=== PATIENT | male | born 1965 | race American Indian/Alaskan Native ===

== ENCOUNTER 2018-09-04 20:45 | Observation (INO) | payer SELFPAY ==
[2018-09-04] MEDS ORDERED: ASPIRIN PO ONE (20:51)
--- NOTE | 2018-09-04 20:57 | Event Note ---
ED Screening Note Date of service: 09/04/18 Time: 20:52 ED Screening Note: This is a 52 y.o. M. that presents to the ER with chest pain radiating to LUE. Patient to nitroglycerin x 3 prior to arrival. PMH: CVA, ID, Brain aneurism This initial assessment/diagnostic orders/clinical plan/treatment(s) is/are subject to change based on patients health status, clinical progression and re- assessment by fellow clinical providers in the ED. Further treatment and workup at subsequent clinical providers discretion. Patient/guardian urged not to elope from the ED as their condition may be serious if not clinically assessed and managed. Initial orders include: Labs and CXR
[2018-09-04 21:14] LABS: Basophils % (Auto) 0.3 % (0.0-1.8); Eosinophils # (Auto) 0.1 K/mm3 (0.0-0.4); Eosinophils % (Auto) 1.2 % (0.0-4.3); Hematocrit 37.2 % (35.5-45.6); Hemoglobin 12.5 gm/dl (11.8-15.2); Lymphocytes # (Auto) 1.8 K/mm3 (1.2-5.4); Lymphocytes % (Auto) 27.4 % (13.4-35.0); Mean Corpuscular HGB Conc 34 % (32-34); Mean Corpuscular Volume 96 fl (84-94); Monocytes # (Auto) 0.4 K/mm3 (0.0-0.8); Monocytes % (Auto) 5.9 % (0.0-7.3); Platelet Count 203 K/mm3 (140-440); Red Blood Count 3.89 M/mm3 (3.65-5.03); Red Cell Distribution Width 14.8 % (13.2-15.2)
[2018-09-04 21:33] LABS: BUN/Creatinine Ratio 8; Blood Urea Nitrogen 11 mg/dL (9-20); Calcium 9.1 mg/dL (8.4-10.2); Hemolysis Index 11
[2018-09-04] MEDS ORDERED: ZOFRAN IV ONE (21:59)
[2018-09-04] MEDS ORDERED: SUBLIMAZE IV ONE (21:59)
--- NOTE | 2018-09-04 22:00 | XRay Report ---
CHEST 1 VIEW 09/04/2018 9:20 PM INDICATION / CLINICAL INFORMATION: Chest Pain. COMPARISON: None available. FINDINGS: SUPPORT DEVICES: None. HEART / MEDIASTINUM: No significant abnormality. LUNGS / PLEURA: No significant pulmonary or pleural abnormality. No pneumothorax. ADDITIONAL FINDINGS: No significant additional findings. IMPRESSION: 1. No acute findings. Signer Name: Paul Vásquez MD Signed: 09/04/2018 9:56 PM Workstation Name: [id number]
--- NOTE | 2018-09-04 22:06 | Emergency Department Report ---
HPI - General Chief Complaint: Chest Pain Time Seen by Provider: 09/04/18 20:51 - HPI HPI: Room 1 The patient is a 52-year-old male presenting with a chief complaint of chest pain. The patient states for the past 3 hours has had constant substernal chest pain described as a pressure in nature. Patient states he has experienced nausea and diaphoresis but denies shortness of breath or vomiting. Patient denies pleurisy or cough. The patient states he drove from [facility] here 2 days ago. Patient rarely gets his pain score 10/10. The patient states he had a cardiac catheterization last year which showed "some blockages but not enough" to stent." Location: [See above] Duration: [See above] Quality: [See above] Severity: [See above] Modifying factors: [see above] Context: [see above] Mode of transportation: [not driving] ED Past Medical Hx - Past Medical History Previous Medical History?: Yes Hx CVA: Yes (anuerysm) Hx Heart Attack/AMI: Yes - Surgical History Past Surgical History?: Yes Hx Appendectomy: Yes Additional Surgical History: back and neck surgery. - Family History Family history: no significant - Social History Smoking Status: Current Some Day Smoker (occasional) Substance Use Type: None (denies illicit drug use), Alcohol (occasional) ED Review of Systems ROS: Stated complaint: CHEST PAIN /HEAD Other details as noted in HPI Constitutional: diaphoresis Eyes: denies: eye pain ENT: denies: throat pain Respiratory: denies: shortness of breath Cardiovascular: chest pain Endocrine: no symptoms reported Gastrointestinal: denies: abdominal pain Genitourinary: denies: dysuria Musculoskeletal: denies: back pain Neurological: denies: headache Physical Exam - Physical Exam Vital Signs: Vital Signs 09/04/18 20:49 Temperature 98.1 F Pulse Rate 61 Respiratory 18 Rate Blood Pressure 165/109 [Right] O2 Sat by Pulse 100 Oximetry Physical Exam: GENERAL: The patient is well-developed well-nourished male lying on stretcher not appearing to be in acute distress. [] HEENT: Normocephalic. Atraumatic. Extraocular motions are intact. Patient has moist mucous membranes. NECK: Supple. Trachea midline CHEST/LUNGS: Clear to auscultation. There is no respiratory distress noted. HEART/CARDIOVASCULAR: Regular. There is no tachycardia. There is no gallop rub or murmur. ABDOMEN: Abdomen is soft, nontender. Patient has normal bowel sounds. There is no abdominal distention. SKIN: There is no rash. There is no edema. There is no diaphoresis. NEURO: The patient is awake, alert, and oriented. The patient is cooperative. The patient has normal speech MUSCULOSKELETAL: There is no evidence of acute injury. ED Course Vital Signs 09/04/18 20:49 Temperature 98.1 F Pulse Rate 61 Respiratory 18 Rate Blood Pressure 165/109 [Right] O2 Sat by Pulse 100 Oximetry ED Medical Decision Making - Lab Data Result diagrams: 09/04/18 21:00 09/04/18 21:00 Laboratory Tests 09/04/18 09/04/18 09/04/18 21:00 21:00 22:00 WBC 6.6 RBC 3.89 Hgb 12.5 Hct 37.2 MCV 96 H MCH 32 MCHC 34 RDW 14.8 Plt Count 203 Lymph % (Auto) 27.4 Sandoval % (Auto) 5.9 Eos % (Auto) 1.2 Baso % (Auto) 0.3 Lymph # 1.8 Sandoval # 0.4 Eos # 0.1 Baso # 0.0 Seg Neutrophils % 65.2 Seg Neutrophils # 4.3 D-Dimer 686.45 H Sodium 141 Potassium 3.2 L Chloride 103.7 Carbon Dioxide 25 Anion Gap 16 BUN 11 Creatinine 1.4 Estimated GFR 53 BUN/Creatinine Ratio 8 Glucose 178 H Calcium 9.1 Troponin T < 0.010 09/04/18 23:43 WBC RBC Hgb Hct MCV MCH MCHC RDW Plt Count Lymph % (Auto) Sandoval % (Auto) Eos % (Auto) Baso % (Auto) Lymph # Sandoval # Eos # Baso # Seg Neutrophils % Seg Neutrophils # D-Dimer Sodium Potassium Chloride Carbon Dioxide Anion Gap BUN Creatinine Estimated GFR BUN/Creatinine Ratio Glucose Calcium Troponin T < 0.010 - EKG Data -: EKG Interpreted by Me EKG shows normal: sinus rhythm Rate: normal - EKG Data When compared to previous EKG there are: previous EKG unavailable Interpretation: nonspecific ST-T wave steve (T-wave inversions in leads 3 and aVF) - Radiology Data Radiology results: report reviewed (chest x-ray, CT chest), image reviewed (chest x-ray, CT chest) interpreted by me: Chest x-ray-no focal infiltrates, no pneumothorax [address] [address] XRay Report Signed Patient: EVITA PENDLETON MR#: [id number] : 1965 Acct:[id number] Age/Sex: 52 / M ADM Date: 09/04/18 Loc: ED Attending Dr: Ordering Physician: ANDI BYRD Date of Service: 09/04/18 Procedure(s): XR chest 1V ap Accession Number(s): [id number] cc: ANDI BYRD Fluoro Time In Minutes: CHEST 1 VIEW 09/04/2018 9:20 PM INDICATION / CLINICAL INFORMATION: Chest Pain. COMPARISON: None available. FINDINGS: SUPPORT DEVICES: None. HEART / MEDIASTINUM: No significant abnormality. LUNGS / PLEURA: No significant pulmonary or pleural abnormality. No pneumoth orax. ADDITIONAL FINDINGS: No significant additional findings. IMPRESSION: 1. No acute findings. Signer Name: Paul Vásquez MD Signed: 09/04/2018 9:56 PM Workstation Name: [id number] Transcribed By: SID Dictated By: Paul Vásquez MD Electronically Authenticated By: Paul Vásquez MD Signed Date/Time: 09/04/182155 DD/ 55 TD/TT: [address] [address] Cat Scan Report Signed Patient: EVITA PENDLETON MR#: [id number] : 1965 Acct:[id number] Age/Sex: 52 / M ADM Date: 09/04/18 Loc: ED Attending Dr: Ordering Physician: ROBERTA HARDING MD Date of Service: 09/05/18 Procedure(s): CT angio chest Accession Number(s): [id number] cc: ROBERTA HARDING MD CTA CHEST WITH IV CONTRAST INDICATION: chest pain, shortness of breath. TECHNIQUE: Axial CT images were obtained through the chest after injection of 100 mL Omnipaque 350 IV contrast. 3 plane MIP reconstructions were produced. All CT scans at this location are performed using CT dose reduction for ALARA by means of automated exposure control. COMPARISON: One view of the chest from 09/04/2018. FINDINGS: PULMONARY ARTERIES: Well-opacified without visualization of thromboemboli. AORTA AND ARTERIES: Patent and normal in caliber without significant atherosclerosis. MEDIASTINUM: No mass, lymphadenopathy or other significant abnormality. The heart is normal in size without a pericardial effusion. The trachea and main bronchi are patent and normal in caliber. LUNGS: Mild dependent atelectasis is noted bilaterally. The lungs are otherwise clear without a pneumothorax or pleural effusion. ADDITIONAL FINDINGS: None. UPPER ABDOMEN: No acute findings. BONES: No significant osseous abnormality. IMPRESSION: 1. No CT evidence for pulmonary embolism. 2. No acute findings. Signer Name: Boston Graham MD Signed: 09/05/2018 1:20 AM Workstation Name: [id number] Transcribed By: MN Dictated By: Boston Graham MD Electronically Authenticated By: Boston Graham MD Signed Date/Time: 09/05/18119 DD/ 6 TD/TT: - Differential Diagnosis ACS, pericarditis, PE, GERD Critical care attestation.: If time is entered above; I have spent that time in minutes in the direct care of this critically ill patient, excluding procedure time. ED Disposition Clinical Impression: Chest pain Disposition: DC-09 OP ADMIT IP TO THIS HOSP Is pt being admited?: Yes Does the pt Need Aspirin: Yes Condition: Fair Instructions: Chest Pain (ED) Time of Disposition: 01:27 (hospitalist paged (Dr. Sapna Matthews))
--- NOTE | 2018-09-05 01:24 | Cat Scan Report ---
CTA CHEST WITH IV CONTRAST INDICATION: chest pain, shortness of breath. TECHNIQUE: Axial CT images were obtained through the chest after injection of 100 mL Omnipaque 350 IV contrast. 3 plane MIP reconstructions were produced. All CT scans at this location are performed using CT dose reduction for ALARA by means of automated exposure control. COMPARISON: One view of the chest from 09/04/2018. FINDINGS: PULMONARY ARTERIES: Well-opacified without visualization of thromboemboli. AORTA AND ARTERIES: Patent and normal in caliber without significant atherosclerosis. MEDIASTINUM: No mass, lymphadenopathy or other significant abnormality. The heart is normal in size w ithout a pericardial effusion. The trachea and main bronchi are patent and normal in caliber. LUNGS: Mild dependent atelectasis is noted bilaterally. The lungs are otherwise clear without a pneum othorax or pleural effusion. ADDITIONAL FINDINGS: None. UPPER ABDOMEN: No acute findings. BONES: No significant osseous abnormality. IMPRESSION: 1. No CT evidence for pulmonary embolism. 2. No acute findings. Signer Name: Boston Graham MD Signed: 09/05/2018 1:20 AM Workstation Name: [id number]
[2018-09-05] MEDS ORDERED: NITROSTAT SL PRN (01:47)
[2018-09-05] MEDS ORDERED: SODIUM CHLORIDE FLUSH SYRINGE 10 ML IV PRN ×2 (01:47→01:49)
[2018-09-05] MEDS ORDERED: ZOFRAN IV PRN (01:49)
[2018-09-05] MEDS ORDERED: TYLENOL PO PRN (01:49)
[2018-09-05] MEDS ORDERED: MORPHINE ONE (01:49)
[2018-09-05] MEDS ORDERED: PROVENTIL IH PRN (01:49)
[2018-09-05] MEDS ORDERED: DILAUDID IV PRN (01:49)
[2018-09-05] MEDS ORDERED: K-DUR PO ONE (01:52)
--- NOTE | 2018-09-05 01:56 | History and Physical Report ---
<DEMETRA CARRANZA - Last Filed: 09/05/18 02:35> History of Present Illness Date of examination: 09/05/18 Date of admission: 09/05/2018 Chief complaint: Chest pain History of present illness: 52-year-old -[place] Citizen male who is an ongoing smoker with history of hypertension, CAD, CVA, IN, aneurysm, and GERD who presents [facility] with complaints of persistent substernal left-sided chest pain. He is visiting from [place], and staying at an extended stay motel on [address]. Pt states that he started to experience persistent substernal left-sided chest pain for approximately 3-4 hours. His chest pain was accompanied with diaphoresis and lightheadedness so he decided to come in for evaluation. Patient admits to having cardiac catheterization done last year, and was told that he has multivessel blockage. He is unsure of the exact percentage. Denies: Nausea, vomiting, diarrhea, fever, headache, cough, or hemoptysis Past History Past Medical History: acute IN, GERD, stroke, other (aneurysm) Past Surgical History: appendectomy, Other (back and neck surgery) Social history: smoking (current every day smoker), other (occasional alcohol use) Family history: CAD (father's side of family all have CAD) Medications and Allergies Allergies Allergy/AdvReac Type Severity Reaction Status Date / Time No Known Allergies Allergy Verified 09/04/18 20:48 Active Meds: Active Medications Acetaminophen (Tylenol) 650 mg PO Q4H PRN PRN Reason: Pain MILD(1-3)/Fever >100.5/BALES Albuterol (Proventil) 2.5 mg IH Q3HRT PRN PRN Reason: Shortness Of Breath Aspirin (Baby Aspirin) 81 mg PO QDAY DANIE Atorvastatin Calcium (Lipitor) 40 mg PO QHS DANIE Enoxaparin Sodium (Lovenox) 40 mg SUB-Q QDAY DANIE Hydromorphone HCl (Dilaudid) 0.5 mg IV Q3H PRN PRN Reason: Pain , Severe (7-10) Morphine Sulfate (Morphine) 2 mg IV Q4H PRN PRN Reason: Pain, Moderate (4-6) Nitroglycerin (Nitrostat) 0.4 mg SL Q5M PRN PRN Reason: Chest Pain Ondansetron HCl (Zofran) 4 mg IV Q8H PRN PRN Reason: Nausea And Vomiting Potassium Chloride (K-Dur) 40 meq PO ONCE ONE Stop: 09/05/18 01:53 Sodium Chloride (Sodium Chloride Flush Syringe 10 Ml) 10 ml IV PRN PRN PRN Reason: LINE FLUSH Sodium Chloride (Sodium Chloride Flush Syringe 10 Ml) 10 ml IV BID DANIE Sodium Chloride (Sodium Chloride Flush Syringe 10 Ml) 10 ml IV PRN PRN PRN Reason: LINE FLUSH Review of Systems All systems: negative (reviewed and no additional remarkable complaints except as noted below) Cardiovascular: chest pain, shortness of breath, dyspnea on exertion, high blood pressure Respiratory: shortness of breath, dyspnea on exertion, other (diaphoresis with chest pain) Exam - Physical Exam Narrative exam: Physical exam General appearance: Present: No acute distress, well-developed, well-nourished, alert and oriented 3, pleasant, and [place] Citizen middle-aged adult male - EENT Eyes: Present: PERRL, EOM intact ENT: hearing intact, normal dentition - Neck Neck: Present: supple, normal ROM - Respiratory Respiratory effort: Non-labored Respiratory: bilateral: diminished (bases) - Cardiovascular Heart rate: 71 (bpm) Rhythm: Sinus rhythm, nonspecific T-wave abnormalities Heart Sounds: Present: S1 & S2. Absent: rub, click - Extremities Extremities: no ischemia, pulses intact, - Peripheral Assessment Peripheral Pulses: within normal limits - Abdominal General gastrointestinal: soft, non-tender, normal bowel sounds - Integumentary Integumentary: Present: warm, dry - Musculoskeletal Musculoskeletal: Able to move all extremities -Neurological Neurological: CN II-XII intact - Psychiatric Psychiatric: cooperative - Constitutional Vitals: Temp Pulse Resp BP Pulse Ox 98.1 F 76 14 150/88 99 09/04/18 20:49 09/04/18 23:46 09/04/18 23:46 09/04/18 23:46 09/04/18 23:46 Results - Labs CBC & Chem 7: 09/04/18 21:00 09/04/18 21:00 Labs: Laboratory Last Values WBC 6.6 K/mm3 (4.5-11.0) 09/04/18 21:00 RBC 3.89 M/mm3 (3.65-5.03) 09/04/18 21:00 Hgb 12.5 gm/dl (11.8-15.2) 09/04/18 21:00 Hct 37.2 % (35.5-45.6) 09/04/18 21:00 MCV 96 fl (84-94) H 09/04/18 21:00 MCH 32 pg (28-32) 09/04/18 21:00 MCHC 34 % (32-34) 09/04/18 21:00 RDW 14.8 % (13.2-15.2) 09/04/18 21:00 Plt Count 203 K/mm3 (140-440) 09/04/18 21:00 Lymph % (Auto) 27.4 % (13.4-35.0) 09/04/18 21:00 Seward % (Auto) 5.9 % (0.0-7.3) 09/04/18 21:00 Eos % (Auto) 1.2 % (0.0-4.3) 09/04/18 21:00 Baso % (Auto) 0.3 % (0.0-1.8) 09/04/18 21:00 Lymph # 1.8 K/mm3 (1.2-5.4) 09/04/18 21:00 Seward # 0.4 K/mm3 (0.0-0.8) 09/04/18 21:00 Eos # 0.1 K/mm3 (0.0-0.4) 09/04/18 21:00 Baso # 0.0 K/mm3 (0.0-0.1) 09/04/18 21:00 Seg Neutrophils % 65.2 % (40.0-70.0) 09/04/18 21:00 Seg Neutrophils # 4.3 K/mm3 (1.8-7.7) 09/04/18 21:00 686.45 ng/mlDDU (0-234) H 09/04/18 22:00 Sodium 141 mmol/L (137-145) 09/04/18 21:00 Potassium 3.2 mmol/L (3.6-5.0) L 09/04/18 21:00 Chloride 103.7 mmol/L (98-107) 09/04/18 21:00 Carbon Dioxide 25 mmol/L (22-30) 09/04/18 21:00 16 mmol/L 09/04/18 21:00 BUN 11 mg/dL (9-20) 09/04/18 21:00 1.4 mg/dL (0.8-1.5) 09/04/18 21:00 Estimated GFR 53 ml/min 09/04/18 21:00 8 % 09/04/18 21:00 Glucose 178 mg/dL (75-100) H 09/04/18 21:00 Calcium 9.1 mg/dL (8.4-10.2) 09/04/18 21:00 < 0.010 ng/mL (0.00-0.029) 09/04/18 23:43 - Imaging and Cardiology Chest x-ray: report reviewed (LUNGS / PLEURA: No significant pulmonary or pleural abnormality. No pneumothorax. ), image reviewed Imaging and Cardiology: CT angiogram Chest: FINDINGS: PULMONARY ARTERIES: Well-opacified without visualization of thromboemboli. AORTA AND ARTERIES: Patent and normal in caliber without significant atherosclerosis. MEDIASTINUM: No mass, lymphadenopathy or other significant abnormality. The heart is normal in size without a pericardial effusion. The trachea and main bronchi are patent and normal in caliber. LUNGS: Mild dependent atelectasis is noted bilaterally. The lungs are otherwise clear without a pneumothorax or pleural effusion. ADDITIONAL FINDINGS: None. UPPER ABDOMEN: No acute findings. BONES: No significant osseous abnormality. IMPRESSION: 1. No CT evidence for pulmonary embolism. 2. No acute findings. Assessment and Plan Assessment and plan: 52-year-old -[place] Citizen male who is an ongoing smoker with history of hypertension, CAD, CVA, IN, aneurysm, and GERD who presents [facility] with complaints of persistent substernal left-sided chest pain with a past 3-4 hours. 1. R/O ACS -CXR unrevealing for acute ischemic abnormalities -EKG shows sinus rhythm with nonspecific T-wave abnormalities -Pt had stress test done last year in [place] which showed blockage (unsure of which arteries and percentage of blockage) -Cardiology consult pending 2. Acute Chest Pain -Supportive Care -Pain mgmt 3. R/O PE -D-Dimer elevated at 686.45 -CT angiogram Chest negative for PE 4. Hypokalemia -Potassium on admission 3.2 -Potassium repleted -Continue to monitor electrolytes, replete as needed 5. Hyptertension -Monitor BP -IV hydralazine when necessary 6. GERD -On PPI 7. Tobacco abuse -Counseled for cessation -Nicotine patch 8. Hx CAD -on Plavix, ASA, and Statin 9. DVT PPX -On Lovenox -On SCDs Hx CVA Hx IN Hx aneurysm Advance Directives: No VTE prophylaxis?: Chemical Plan of care discussed with patient/family: Yes <SIERRA GONZALEZ - Last Filed: 09/07/18 03:27> History of Present Illness Date of admission: 09/05/18 01:49 Exam - Constitutional Vitals: Temp Pulse Resp BP Pulse Ox 98.0 F 61 16 140/103 100 09/05/18 09:24 09/05/18 09:24 09/05/18 09:24 09/05/18 09:24 09/05/18 09:24 Results - Labs CBC & Chem 7: 09/04/18 21:00 09/04/18 21:00 Labs: Laboratory Last Values WBC 6.6 K/mm3 (4.5-11.0) 09/04/18 21:00 RBC 3.89 M/mm3 (3.65-5.03) 09/04/18 21:00 Hgb 12.5 gm/dl (11.8-15.2) 09/04/18 21:00 Hct 37.2 % (35.5-45.6) 09/04/18 21:00 MCV 96 fl (84-94) H 09/04/18 21:00 MCH 32 pg (28-32) 09/04/18 21:00 MCHC 34 % (32-34) 09/04/18 21:00 RDW 14.8 % (13.2-15.2) 09/04/18 21:00 Plt Count 203 K/mm3 (140-440) 09/04/18 21:00 Lymph % (Auto) 27.4 % (13.4-35.0) 09/04/18 21:00 Seward % (Auto) 5.9 % (0.0-7.3) 09/04/18 21:00 Eos % (Auto) 1.2 % (0.0-4.3) 09/04/18 21:00 Baso % (Auto) 0.3 % (0.0-1.8) 09/04/18 21:00 Lymph # 1.8 K/mm3 (1.2-5.4) 09/04/18 21:00 Seward # 0.4 K/mm3 (0.0-0.8) 09/04/18 21:00 Eos # 0.1 K/mm3 (0.0-0.4) 09/04/18 21:00 Baso # 0.0 K/mm3 (0.0-0.1) 09/04/18 21:00 Seg Neutrophils % 65.2 % (40.0-70.0) 09/04/18 21:00 Seg Neutrophils # 4.3 K/mm3 (1.8-7.7) 09/04/18 21:00 686.45 ng/mlDDU (0-234) H 09/04/18 22:00 Sodium 141 mmol/L (137-145) 09/04/18 21:00 Potassium 3.2 mmol/L (3.6-5.0) L 09/04/18 21:00 Chloride 103.7 mmol/L (98-107) 09/04/18 21:00 Carbon Dioxide 25 mmol/L (22-30) 09/04/18 21:00 16 mmol/L 09/04/18 21:00 BUN 11 mg/dL (9-20) 09/04/18 21:00 1.4 mg/dL (0.8-1.5) 09/04/18 21:00 Estimated GFR 53 ml/min 09/04/18 21:00 8 % 09/04/18 21:00 Glucose 178 mg/dL (75-100) H 09/04/18 21:00 Calcium 9.1 mg/dL (8.4-10.2) 09/04/18 21:00 < 0.010 ng/mL (0.00-0.029) 09/05/18 04:56 Triglycerides 125 mg/dL (2-149) 09/05/18 04:56 Cholesterol 120 mg/dL (50-199) 09/05/18 04:56 72 mg/dL (50-130) 09/05/18 04:56 40 mg/dL (40-59) 09/05/18 04:56 3.00 % 09/05/18 04:56 Assessment and Plan Assessment and plan: Patient seen and examined, d/w [employer]. Agree with plan as stated above
[2018-09-05] MEDS: MORPHINE IV PRN ×3 (02:00→09:47)
[2018-09-05] MEDS ORDERED: APRESOLINE IV PRN (02:02)
[2018-09-05] MEDS ORDERED: LEXISCAN IV ONE ×2 (07:18→07:39)
[2018-09-05 09:30] VITALS: BP 140/103
[2018-09-05] MEDS ORDERED: PROTONIX PO SCH (10:00)
[2018-09-05] MEDS ORDERED: PLAVIX PO SCH (10:00)
[2018-09-05] MEDS ORDERED: LOVENOX SUB-Q SCH (10:00)
[2018-09-05] MEDS ORDERED: HABITROL TD SCH (10:00)
[2018-09-05] MEDS ORDERED: SODIUM CHLORIDE FLUSH SYRINGE 10 ML IV SCH (10:00)
--- NOTE | 2018-09-05 10:50 | Consultation ---
History of Present Illness Consult date: 09/05/18 Requesting physician: DEMETRA CARRANZA Consult reason: chest pain History of present illness: The pt is a 52-year-old -Swedish male with a past medical history of nonobstructive CAD, HTN, HLP, tobacco use. He is previously unknown to our practice. He is visiting [place] from [place], [place] to help a family member buy a house. He presented with c/o chest pain. He states he was experiencing some stress related to the home buying process and was on the phone when the pain began. He describes the pain as a constant midsternal pressure which lasted for 3 hours. Pt denies any SOB, palpitations, n/v, diaphoresis, dizziness or syncope. He states that prior to yesterday, he has been feeling well with no chest pain. Pt does admit that he ran out of his losartan prescription and BPs have been elevated. Of note, pt reports that he has undergone cardiac catheterization a total of 9 times and his last cath was "a couple months ago" in [place] which showed nonobstructive CAD (which he has had for several years). Pt also reports that he underwent stress testing 3 weeks ago which was normal. He does not recall the name of the facilities in [place] where these tests were performed. On evaluation, he reports resolution of his chest pain. Past History Past Medical History: CAD, GERD, hypertension Past Surgical History: appendectomy, Other (back and neck surgery) Social history: smoking (current every day smoker), other (occasional alcohol use) Family history: CAD (father's side of family all have CAD) Medications and Allergies Allergies Allergy/AdvReac Type Severity Reaction Status Date / Time No Known Allergies Allergy Verified 09/04/18 20:48 Home Medications Medication Instructions Recorded Confirmed Last Taken Type Losartan [Cozaar] 25 mg PO QDAY 09/05/18 09/05/18 Unknown History Metoprolol [Lopressor] 25 mg PO DAILY 09/05/18 09/05/18 1 Day Ago History ~09/04/18 hydroCHLOROthiazide 50 mg PO DAILY 09/05/18 09/05/18 Unknown History [Hydrochlorothiazide] Active Meds: Active Medications Acetaminophen (Tylenol) 650 mg PO Q4H PRN PRN Reason: Pain MILD(1-3)/Fever >100.5/BALES Albuterol (Proventil) 2.5 mg IH Q3HRT PRN PRN Reason: Shortness Of Breath Aspirin (Baby Aspirin) 81 mg PO QDAY [facility] Atorvastatin Calcium (Lipitor) 40 mg PO QHS [facility] Clopidogrel Bisulfate (Plavix) 75 mg PO QDAY [facility] Last Admin: 09/05/18 09:46 Dose: 75 mg Documented by: Hydralazine HCl (Apresoline) 10 mg IV Q4HR PRN PRN Reason: Blood Pressure Hydromorphone HCl (Dilaudid) 0.5 mg IV Q3H PRN PRN Reason: Pain , Severe (7-10) Morphine Sulfate (Morphine) 2 mg IV Q4H PRN PRN Reason: Pain, Moderate (4-6) Last Admin: 09/05/18 09:47 Dose: 2 mg Documented by: Nicotine (Habitrol) 14 mg TD QDAY [facility] Last Admin: 09/05/18 09:46 Dose: Not Given Documented by: Nitroglycerin (Nitrostat) 0.4 mg SL Q5M PRN PRN Reason: Chest Pain Ondansetron HCl (Zofran) 4 mg IV Q8H PRN PRN Reason: Nausea And Vomiting Pantoprazole Sodium (Protonix) 40 mg PO QDAY [facility] Last Admin: 09/05/18 09:46 Dose: 40 mg Documented by: Sodium Chloride (Sodium Chloride Flush Syringe 10 Ml) 10 ml IV PRN PRN PRN Reason: LINE FLUSH Sodium Chloride (Sodium Chloride Flush Syringe 10 Ml) 10 ml IV BID [facility] Last Admin: 09/05/18 09:47 Dose: 10 ml Documented by: Review of Systems Constitutional: no weight loss, no weight gain, no fever, no chills, no sweats Ears, nose, mouth and throat: no ear pain, no nose pain, no sinus pressure, no sinus pain Cardiovascular: chest pain, high blood pressure, no orthopnea, no palpitations, no rapid/irregular heart beat, no edema, no syncope, no lightheadedness, no shortness of breath, no dyspnea on exertion, no paroxysmal nocturnal dyspnea, no leg edema Respiratory: no cough, no shortness of breath, no dyspnea on exertion, no con gestion, no wheezing, no pain on inspiration Gastrointestinal: no abdominal pain, no nausea, no vomiting, no diarrhea, no constipation, no change in bowel habits Genitourinary Male: no dysuria, no hematuria, no flank pain, no discharge, no urinary frequency, no urinary hesitancy Musculoskeletal: no neck stiffness, no neck pain, no shooting arm pain, no arm numbness/tingling, no low back pain, no shooting leg pain Integumentary: no rash, no pruritis, no redness, no sores, no wounds Neurological: no head injury, no paralysis, no weakness, no parathesias, no numbness, no tingling, no seizures, no syncope Psychiatric: no anxiety Endocrine: no cold intolerance, no heat intolerance Hematologic/Lymphatic: no easy bruising, no easy bleeding Allergic/Immunologic: no urticaria, no wheezing Physical Examination Vital Signs Temp Pulse Resp BP Pulse Ox 98.1 F 61 18 165/109 100 09/04/18 20:49 09/04/18 20:49 09/04/18 20:49 09/04/18 20:49 09/04/18 20:49 General appearance: no acute distress HEENT: Positive: PERRL, Normocephaly, Mucus Membranes Moist Neck: Positive: neck supple, trachea midline Cardiac: Positive: Reg Rate and Rhythm, S1/S2 Lungs: Positive: clear to auscultation Neuro: Positive: Grossly Intact Abdomen: Negative: Tender Skin: Negative: Rash, Wound Musculoskeletal: No Pain Extremities: Absent: edema Results 09/04/18 21:00 09/04/18 21:00 Lipids 09/05/18 Range/Units 04:56 Triglycerides 125 (2-149) mg/dL Cholesterol 120 (50-199) mg/dL HDL Cholesterol 40 (40-59) mg/dL Cholesterol/HDL Ratio 3.00 % CBC 09/04/18 Range/Units 21:00 WBC 6.6 (4.5-11.0) K/mm3 RBC 3.89 (3.65-5.03) M/mm3 Hgb 12.5 (11.8-15.2) gm/dl Hct 37.2 (35.5-45.6) % Plt Count 203 (140-440) K/mm3 Lymph # 1.8 (1.2-5.4) K/mm3 [place] # 0.4 (0.0-0.8) K/mm3 Eos # 0.1 (0.0-0.4) K/mm3 Baso # 0.0 (0.0-0.1) K/mm3 Comprehensive Metabolic Panel 09/04/18 Range/Units 21:00 Sodium 141 (137-145) mmol/L Potassium 3.2 L (3.6-5.0) mmol/L Chloride 103.7 (98-107) mmol/L Carbon Dioxide 25 (22-30) mmol/L BUN 11 (9-20) mg/dL Creatinine 1.4 (0.8-1.5) mg/dL Glucose 178 H (75-100) mg/dL Calcium 9.1 (8.4-10.2) mg/dL - Imaging and Cardiology EKG: report reviewed, image reviewed EKG interpretations - Telemetry EKG Rhythm: Sinus Rhythm - EKG Sinus rhythms and dysrhythmias: sinus rhythm (t-wave inversions in inferior leads) Assessment and Plan DDimer elevated - chest CTA negative for PE. ECG with t-wave inversions on inferior leads, [place] negative for AMI. Pt reports resolution of chest pain. Pt reports that he has undergone cardiac catheterization a total of 9 times and his last cath was "a couple months ago" in [place] which showed nonobstructive CAD (which he has had for several years). Pt also reports that he underwent stress testing 3 weeks ago which was normal. He does not recall the name of the facilities in [place] where these tests were performed and thus we cannot request medical records at this time. Lexiscan MPI stress test and/or LHC recommended to pt and pt declines any additional cardiac testing at this time. He wishes to be discharged home and would like to follow up with his primary cardiology team in [place], [place]. Pt may discharge on home cardiac regimen and recommend he follow up with manager er in [place] within 1-2 weeks of hospital discharge. Pt verbalizes understanding. D/w Dr. Hummel. The patient has been seen in conjunction with Dr. Greene who agrees with the assessment and plan of care. - Patient Problems (1) Chest pain Current Visit: Yes Status: Acute (2) Uncontrolled hypertension Current Visit: Yes Status: Acute (3) Nonobstructive atherosclerosis of coronary artery Current Visit: Yes Status: Chronic (4) Hyperlipidemia Current Visit: Yes Status: Chronic (5) Tobacco use Current Visit: Yes Status: Chronic
[2018-09-05] MEDS ORDERED: PERCOCET 5/325 PO PRN (12:35)
[2018-09-05] MEDS ORDERED: XANAX PO PRN (12:35)
--- NOTE | 2018-09-05 12:35 | Discharge Summary ---
Providers - Providers Date of Admission: 09/05/18 01:49 Date of discharge: 09/05/18 Attending physician: SABRA KEARNEY 09/05/18 02:06 Consult to Physician [CONS] Routine Comment: Consulting Provider: CHASTITY GALDAMEZ Physician Instructions: Reason For Exam: CP in pt with hx of CVA & [place] Primary care physician: SECURITY AND COMPLIANCE ANALYST Hospitalization Condition: Fair Pertinent studies: Refused catheterization and stress test. Hospital course: He should've 49-year-old male history of tobacco abuse hypertension CVA [place] GERD presenting with left-sided chest pain 3-4 hours associated with some diaphoresis quickly resolved upon presentation to the ED. CT angiogram negative for PE and aorta patent. Patient had negative cardiac enzymes. Patient has had previous stress tests that showed distal vessel disease. Patient is aware. Patient most likely will require CABG procedure. Patient is aware and will like to go back to [place] and have the procedure done since he has family nearby. We have spoke with patient about the risk of concerns. He did not want to do it he wanted to do it in [place] will give medical management for him to follow-up in [place] for potential CABG procedure. Disposition: DC- TO HOME OR SELFCARE - Discharge Diagnoses (1) Chest pain Status: Acute Comment: Follow-up [place] for CABG. (2) Uncontrolled hypertension Status: Acute Comment: Increase losartan to 50 mg. (3) Hyperlipidemia Status: Chronic Comment: Aspirin. Statin. (4) Nonobstructive atherosclerosis of coronary artery Status: Chronic Core Measure Documentation - Palliative Care Palliative Care/ Comfort Measures: Not Applicable - Core Measures Any of the following diagnoses?: none Exam - Constitutional Vitals: Temp Pulse Resp BP Pulse Ox 98.0 F 61 16 140/103 100 09/05/18 09:24 09/05/18 09:24 09/05/18 09:24 09/05/18 09:24 09/05/18 09:24 General appearance: Present: no acute distress, well-nourished - EENT Eyes: Present: PERRL ENT: hearing intact, clear oral mucosa - Neck Neck: Present: supple, normal ROM - Respiratory Respiratory effort: normal Respiratory: bilateral: CTA - Cardiovascular Heart Sounds: Present: S1 & S2. Absent: rub, click - Extremities Extremities: pulses symmetrical, No edema Peripheral Pulses: within normal limits - Abdominal General gastrointestinal: Present: soft, non-tender, non-distended, normal bowel sounds Male genitourinary: Present: normal - Integumentary Integumentary: Present: clear, warm, dry - Musculoskeletal Musculoskeletal: gait normal, strength equal bilaterally - Psychiatric Psychiatric: appropriate mood/affect, intact judgment & insight - Neurologic Neurologic: CNII-XII intact, moves all extremities Plan Activity: avoid flexion Weight Bearing Status: Full Weight Bearing Diet: low cholesterol, low salt Special Instructions: record daily BP diary, smoking cessation Follow up with: PRIMARY CARE, [Primary Care Provider] - 3-5 Days Prescriptions: Aspirin [Aspirin BABY CHEW TAB] 81 mg PO QDAY #30 tab.chew Losartan [Cozaar] 50 mg PO QDAY #30 tablet traZODone [Desyrel] 50 mg PO QHS #30 tablet Nicotine [Habitrol] 14 mg TD QDAY #14 patch hydroCHLOROthiazide [Hydrochlorothiazide] 50 mg PO DAILY #30 tablet AtorvaSTATin [Lipitor] 40 mg PO QHS #30 tablet Metoprolol [Lopressor TAB] 25 mg PO DAILY #60 tablet Nitroglycerin [Nitrostat] 0.4 mg SL Q5M PRN #10 tablet PRN Reason: Chest Pain oxyCODONE /ACETAMINOPHEN [Percocet 5/325 mg] 1 tab PO Q6H PRN #30 tablet PRN Reason: Pain, Moderate (4-6) Clopidogrel [Plavix] 75 mg PO QDAY #30 tablet Pantoprazole [Protonix TAB] 40 mg PO QDAY #30 tablet ALPRAZolam [Xanax TAB] 1 mg PO Q8H PRN #20 tablet PRN Reason: Anxiety
[2018-09-05] MEDS ORDERED: DESYREL PO SCH (22:00)
[2018-09-06] MEDS ORDERED: BABY ASPIRIN PO SCH (10:00)
== END 2018-09-05 14:00 | disposition home or self-care (01) ==
LOC: ED 20:45 → 4A 09-05 01:49
PROVIDERS: ADMIT Internal Medicine; ATTEND Internal Medicine
DX: E87.6 Hypokalemia (principal); R07.9 Chest pain, unspecified; I25.10 Atherosclerotic heart disease of native coronary artery without angina pectoris; I10 Essential (primary) hypertension; I25.2 Old myocardial infarction; K21.9 Gastro-esophageal reflux disease without esophagitis; F17.200 Nicotine dependence, unspecified, uncomplicated; Z79.82 Long term (current) use of aspirin
CPT/HCPCS: 36415; 71045; 71275; 80048; 80061; 84484; 85025; 85379; 93005; 93010; 96374; 96375; 96376; 99284; G0378; J2270; J2405; J3010; Q9967; J2785